=== PATIENT | female | born 1965 | race Two or more races ===

== ENCOUNTER 2017-01-07 09:55 | Emergency (ER) | payer OTHER ==
[~2017-01-07] VITALS: Ht 160 cm; Wt 86.2 kg
[2017-01-07 09:55] VITALS: BP 105/69
[2017-01-07] MEDS ORDERED: GUAIFENESIN 300 MG/15 ML UDC ONE (10:45)
[2017-01-07] MEDS ORDERED: IBUPROFEN 600 MG TABLET PO ONE ×2 (10:45→11:00)
[2017-01-07] MEDS ORDERED: GUAIFENESIN/CODEINE 10 ML UDC PO ONE (11:00)
== END 2017-01-07 11:35 | disposition home or self-care (01) ==
LOC: ER 09:59
DX: J06.9 Acute upper respiratory infection, unspecified (principal); Z90.49 Acquired absence of other specified parts of digestive tract
CPT/HCPCS: 87804; 99284; A4606; Z7610; 87400

== ENCOUNTER 2017-10-03 18:27 | Emergency (ER) | payer OTHER ==
[~2017-10-03] VITALS: Ht 154.9 cm; Wt 86.2 kg
[2017-10-03 18:47] VITALS: BP 115/78
[2017-10-03] MEDS ORDERED: diphenhydrAMINE HCL 50 MG CAPSULE ONE (19:27)
[2017-10-03] MEDS ORDERED: predniSONE 20 MG TABLET ONE (19:27)
[2017-10-03] MEDS ORDERED: diphenhydrAMINE HCL 25 MG CAPSULE PO ONE (19:30)
[2017-10-03] MEDS ORDERED: predniSONE 20 MG TABLET PO ONE (19:30)
== END 2017-10-03 19:30 | disposition home or self-care (01) ==
LOC: ER 18:30
DX: L50.8 Other urticaria (principal); Z90.49 Acquired absence of other specified parts of digestive tract
CPT/HCPCS: 99283; A4606; J7512; Q0163; Z7610

== ENCOUNTER 2018-05-31 09:07 | Emergency (ER) | payer OTHER ==
[~2018-05-31] VITALS: Ht 152.4 cm; Wt 93.0 kg
[2018-05-31 09:18] VITALS: BP 116/74
--- NOTE | 2018-05-31 10:43 | NUR ---
for discharge- [facility]CI given verbalized understanding Home ambulatory Stable
== END 2018-05-31 10:43 | disposition home or self-care (01) ==
LOC: ER 09:10
DX: M54.5 Low back pain (principal); Z90.49 Acquired absence of other specified parts of digestive tract
CPT/HCPCS: 72100; 99283; A4606; Z7610

== ENCOUNTER 2018-08-14 18:32 | Emergency (ER) | payer OTHER ==
[~2018-08-14] VITALS: Ht 157.5 cm; Wt 90.7 kg
[2018-08-14 18:35] VITALS: BP 110/72
[2018-08-14 19:16] LABS: APPEARANCE,URINE Clear (CLEAR); BILIRUBIN,URINE Negative (NEGATIVE); BLOOD, URINE Moderate Ery/uL (NEGATIVE); COLOR,URINE Yellow (YELLOW); KETONES,URINE Negative (NEGATIVE); LEUKOCYTE ESTERASE ,URINE Trace (NEGATIVE); NITRITE, URINE Negative (NEGATIVE); PH,URINE 5.5 (5.0-8.0); PROTEIN,URINE Negative (NEGATIVE); UGLUCOSE Negative (NEGATIVE); UROBILINOGEN,URINE 0.2 EU/dL (0.2)
[2018-08-14 19:25] LABS: BACTERIA,URINE Few /HPF (None Seen); SQUAMOUS EPITHELIAL CELL,UR Few /HPF (None Seen)
== END 2018-08-14 19:44 | disposition home or self-care (01) ==
LOC: ER 18:32
DX: N30.00 Acute cystitis without hematuria (principal); Z90.49 Acquired absence of other specified parts of digestive tract
CPT/HCPCS: 81000-TC

== ENCOUNTER 2020-06-16 15:07 | Emergency (ER) | payer OTHER ==
[~2020-06-16] VITALS: Ht 160 cm; Wt 83.9 kg
--- NOTE | 2020-06-16 15:35 | NUR ---
diffuse abdominal and rectal pain x 2 weeks. Patient a/ox4, ambulatory with steady gait. No distress noted. Needs attended.
--- NOTE | 2020-06-16 15:46 | NUR ---
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
[2020-06-16 16:08] LABS: BASOPHILS # (AUTO) 0.1 /CMM (0.0-0.2); BASOPHILS % (AUTO) 1.1 % (0.0-2.0); EOSINOPHILS % (AUTO) 2.1 % (0.0-6.0); HEMATOCRIT 43 % (33-45); HEMOGLOBIN 14.3 g/dL (11.5-14.8); LYMPHOCYTES # (AUTO) 2.5 /CMM (0.8-4.8); LYMPHOCYTES % (AUTO) 31.1 % (20.0-44.0); MEAN CORPUSCULAR HGB CONC 33 g/dl (31.0-36.0); MEAN CORPUSCULAR VOLUME 87 fL (82-100); MONOCYTES # (AUTO) 0.5 /CMM (0.1-1.30); MONOCYTES % (AUTO) 6.5 % (2.0-12.0); NEUTROPHILS # (AUTO) 4.7 /CMM (1.8-8.9); NEUTROPHILS % (AUTO) 59.2 % (43.0-81.0); PLATELET COUNT (AUTO) 435 /CMM (150-450); RED BLOOD CELL COUNT(AUTO) 4.91 MIL/uL (4.0-5.2); WHITE BLOOD COUNT (AUTO) 7.9 K/uL (4.3-11.0)
[2020-06-16 16:10] LABS: BILIRUBIN,URINE NEGATIVE (NEGATIVE); COLOR,URINE YELLOW (YELLOW); LEUKOCYTE ESTERASE ,URINE NEGATIVE (NEGATIVE); NITRITE, URINE NEGATIVE (NEGATIVE); PROTEIN,URINE NEGATIVE (NEGATIVE); UGLUCOSE NEGATIVE (NEGATIVE); UROBILINOGEN,URINE 0.2 EU/dL (0.2)
[2020-06-16 16:15] LABS: CREATININE 0.7 mg/dL (0.6-1.3); POTASSIUM 3.8 mmol/L (3.5-5.1)
[2020-06-16 16:19] LABS: BACTERIA,URINE Rare /HPF (None Seen); SQUAMOUS EPITHELIAL CELL,UR Few /HPF (None Seen); WBC,URINE 0-2 /HPF (0-3)
[2020-06-16 16:21] LABS: ALBUMIN 3.7 g/dL (3.4-5.0); BILIRUBIN,DIRECT 0.1 mg/dL (0.0-0.2); BILIRUBIN,TOTAL 0.2 mg/dL (0.2-1.0); TOTAL PROTEIN, SERUM 7.8 g/dL (6.4-8.2)
--- NOTE | 2020-06-16 17:10 | NUR ---
PATIENT A/OX4, BREATHING EVEN AND UNLABORED, NO SOB NOTED. Patient discharged to home in stable condition. Written and verbal after care instructions given. Patient verbalizes understanding of instruction.
[2020-06-16 17:11] VITALS: BP 134/91
== END 2020-06-16 17:11 | disposition home or self-care (01) ==
LOC: ER 15:11
DX: R10.32 Left lower quadrant pain (principal); K76.0 Fatty (change of) liver, not elsewhere classified; Z90.49 Acquired absence of other specified parts of digestive tract
CPT/HCPCS: 36415; 80048-TC; 80076-TC; 81001; 83690-TC; 84703-TC; 85025-TC

== ENCOUNTER 2022-07-25 13:29 | Emergency (ER) | payer OTHER ==
[~2022-07-25] VITALS: Ht 160 cm; Wt 89.8 kg
[2022-07-25 13:29] VITALS: BP 113/62
--- NOTE | 2022-07-25 14:11 | NUR ---
TO ER CHAIR 2, NO CHANGE IN CONDITION
--- NOTE | 2022-07-25 14:20 | NUR ---
SEEN BY DR. FOUNTAIN
[2022-07-25] MEDS ORDERED: methylPREDNISolone ACETATE 80 MG/ML VIAL IM ONE (15:00)
[2022-07-25] MEDS ORDERED: PRED50TA PO (15:02)
[2022-07-25] MEDS ORDERED: FAMO-131 PO (15:02)
[2022-07-25] MEDS ORDERED: LORA10TA7 PO (15:02)
[2022-07-25] MEDS ORDERED: methylPREDNISolone ACETATE 80 MG/ML VIAL ONE ×2 (15:21)
--- NOTE | 2022-07-25 15:30 | NUR ---
PT IMPROVING AND FEELING RESLOVE
--- NOTE | 2022-07-25 15:42 | NUR ---
Patient discharged to home in stable condition. Written and verbal after care instructions given. Patient verbalizes understanding of instruction.
== END 2022-07-25 15:46 | disposition home or self-care (01) ==
LOC: ER 13:31
DX: L23.9 Allergic contact dermatitis, unspecified cause (principal); Z90.49 Acquired absence of other specified parts of digestive tract
CPT/HCPCS: 99283; 96372; J1040 ×2

== ENCOUNTER 2024-04-13 10:05 | Emergency (ER) | payer OTHER ==
[~2024-04-13] VITALS: Ht 160 cm; Wt 117.9 kg
[~2024-04-13 10:05] MED LIST: FAMO-131 PO; LORA10TA7 PO; PRED50TA PO
[2024-04-13] MEDS ORDERED: dexaMETHasone SOD PHOSPHATE 10 MG/ML VIAL IM ONE (13:00)
[2024-04-13] MEDS ORDERED: dexaMETHasone SOD PHOSPHATE 1 ML ONE (13:06)
[2024-04-13] MEDS ORDERED: CLINDAMYCIN HCL 150 MG CAPSULE ONE (13:06)
[2024-04-13] MEDS ORDERED: CLIN300C12 PO (13:07)
[2024-04-13] MEDS ORDERED: KETO10TA2 PO (13:07)
[2024-04-13] MEDS: CLINDAMYCIN HCL 150 MG CAPSULE PO ONE (13:07)
[2024-04-13 13:16] VITALS: BP 142/80; TEMP 98; O2SAT 98
== END 2024-04-13 13:16 | disposition home or self-care (01) ==
LOC: ER 10:05
DX: J02.9 Acute pharyngitis, unspecified (principal); H92.02 Otalgia, left ear; R06.02 Shortness of breath; R07.9 Chest pain, unspecified; Z79.52 Long term (current) use of systemic steroids; Z90.49 Acquired absence of other specified parts of digestive tract
CPT/HCPCS: 99283; J1100